=== PATIENT | male | born 1945 | race Caucasian/White ===

== ENCOUNTER → 2019-12-28 07:54 | Outpatient (CLI) | payer OTHER ==
[2019-12-28 08:38] LABS: BILIRUBIN NEGATIVE (NEGATIVE); GLUCOSE 250 mg/dL (NEGATIVE); KETONE NEGATIVE (NEGATIVE); NITRITE NEGATIVE (NEGATIVE); UROBILINOGEN NORMAL (NORMAL)
[2019-12-28 08:54] LABS: ALBUMIN 4.4 g/dL (3.4-5.0); ANION GAP 10.8 mmol/L (8-16); BILIRUBIN - TOTAL 0.67 mg/dL (0.2-1.3); CALCIUM 9.8 mg/dL (8.5-10.1); CARBON DIOXIDE 27.9 mmol/L (21.0-32.0); CREATININE - SERUM 1.4 mg/dL (0.6-1.3); POTASSIUM - SERUM 4.7 mmol/L (3.5-5.1)
== END | disposition home or self-care (01) ==
LOC: D.LAB 07:54 → D.ECHO 09:00
DX: E11.9 Type 2 diabetes mellitus without complications (principal); I25.9 Chronic ischemic heart disease, unspecified